=== PATIENT | female | born 2005 | race Caucasian/White ===

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

== ENCOUNTER 2023-07-15 22:31 | Emergency (ER) | payer OTHER, SELFPAY ==
[2023-07-15 22:41] VITALS: BP 136/85; PULSE 69; RESP 20; TEMP 37.2; O2SAT 99; BMI 21.1
[2023-07-15 22:58] LABS: Appearance Urine Clear (Clear); Bilirubin Urine Negative (Negative); Blood Urine Negative (Negative); Color Urine Yellow (Yellow); Glucose Urine Negative (Negative); Ketones Urine Negative (Negative); Leukocyte Esterase Urine Negative (Negative); Nitrite Urine Negative (Negative); Protein Urine Negative (Negative); Urobilinogen Urine 0.2 (0.2-1.0); pH Urine 5.5 (5.0-8.5)
[2023-07-15 23:08] LABS: Amphetamine Screen Urine Negative (Negative); Barbiturate Screen Urine Negative (Negative); Benzodiazepines Screen Urine POSITIVE (Negative); Cannabinoid Screen Urine Negative (Negative); Cocaine Screen Urine Negative (Negative); Methadone Screen Urine Negative (Negative); Methamphetamines Screen Urine Negative (Negative); Opiate Screen Urine Negative (Negative); Oxycodone Screen Urine Negative (Negative); Phencyclidine Screen Urine Negative (Negative); Tricyclic Antidepressant Urine Negative (Negative)
[2023-07-15 23:13] LABS: Bacteria Urine Few; RBC Urine 0-2 (0-2); Squamous Epithelial Cell Urine Few (None-Few)
[2023-07-15 23:26] LABS: Basophils Absolute Auto 0.03 K/uL (0.00-0.30); Basophils Percent Auto 0.3 % (0.0-3.0); Eosinophils Absolute Auto 0.14 K/uL (0.00-0.50); Eosinophils Percent Auto 1.4 % (0.0-7.0); Hemoglobin* 13.5 gm/dL (12.0-16.0); Immature Granulocytes Abs Auto 0.11 K/uL (0.00-0.30); Immature Granulocytes Pct Auto 1.1 %; Lymphocytes Absolute Auto 2.71 K/uL (0.90-2.90); Mean Corpuscular HGB Conc 34 gm/dL (32-36); Mean Corpuscular Hemoglobin 29 pg (26-34); Mean Corpuscular Volume 85 fL (80-100); Monocytes Percent Auto 11.6 % (0.0-11.0); Neutrophils Absolute Auto 5.89 K/uL (1.7-7.0); Neutrophils Percent Auto 58.6 % (42.0-72.0); Platelet Count* 412 K/uL (140-440); Red Blood Count 4.72 m/uL (4.00-5.20); White Blood Count* 10.04 K/uL (4.50-11.00)
[2023-07-15 23:31] LABS: SARS Antigen* Negative (Negative)
[2023-07-15 23:42] LABS: Chloride* 108 mmol/L (96-114); Potassium* 3.8 mmol/L (3.6-5.1); Sodium* 140 mmol/L (135-149)
[2023-07-15 23:45] LABS: Anion Gap 9 mEq/L (7-15); Blood Urea Nitrogen* 12 mg/dL (5-24); Carbon Dioxide* 23 mmol/L (20-32); Creatinine* 0.8 mg/dL (0.6-1.2); Est. Creatinine Clearance* 109.34; Estimated Glomerular Filt Rate 109 ml/min
[2023-07-15 23:46] LABS: Calcium* 9.8 mg/dL (8.7-10.8); Glucose* 88 mg/dL (60-115)
[2023-07-15 23:53] LABS: Acetaminophen* < 10.0 ug/mL (10.0-30.0); Salicylate* < 1.0 mg/dL (1.0-10)
[2023-07-15 23:56] LABS: Slide Review Reflex No
--- NOTE | 2023-07-16 00:40 | ED_ITS ---
HPI - Psych General Date Seen: 07/16/23 <Gary Glo Abraham - Last Filed: 07/16/23 02:08> Chief Complaint: Psychiatric Problem/Disorder <Gary Rosario - Last Filed: 07/16/23 02:08> Stated Complaint: mental health <Gary Rosario - Last Filed: 07/16/23 02:08> Time Seen by Provider: 07/15/23 22:38 <Gary Glo Abraham - Last Filed: 07/16/23 02:08> Source: patient <Gary Rosario - Last Filed: 07/16/23 02:08> Mode of arrival: ambulatory <Gary Rosario - Last Filed: 07/16/23 02:08> Limitations: no limitations <Gary Rosario - Last Filed: 07/16/23 02:08> History of Present Illness HPI Narrative: Patient is an 16-year-old female with a history of depression, PTSD presenting to the emergency department for suicidal ideation. Patient states she has not been doing well over the past few weeks. Her mom is not involved in her life at all and her father is an alcoholic who recently got a DUI. 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 She also states they recently decreased her ADHD medication and she thinks that has made it worse. She has not believe her medication is helping at all right now. She has had thoughts of suicide and while does not have an exact plan how she would commit suicide she does not feel safe being alone. She does think she would be safe son she is staying with her boyfriend or friends. Has had suicidal thoughts like this before. Has never required inpatient treatment. Has tried outpatient with little success. Currently her therapist is online and she states she prefer somewhat is in person. She does have a doctor that is prescribing her medications. Denies any homicidal thoughts. Denies auditory or visual hallucinations. No other concerns noted at this time. <Gary Rosario - Last Filed: 07/16/23 02:08> Related Data Home Medications: Home Medications Medication Instructions Recorded Confirmed trazodone 50 mg tablet 75 mg PO QHS 03/14/22 07/15/23 levothyroxine 88 mcg tablet 88 mcg PO DAILY 07/15/23 07/15/23 linaclotide 145 mcg capsule 290 mcg PO QAM 07/15/23 07/15/23 (Linzess) lorazepam 1 mg tablet 1 mg PO DAILY PRN panic attack 07/15/23 07/15/23 methylphenidate HCl 36 mg 36 mg PO QAM 07/15/23 07/15/23 tablet,extended release 24 hr (Concerta) mirtazapine 7.5 mg tablet 7.5 mg PO QPM 07/15/23 07/15/23 norgestrel 0.3 mg-ethinyl 1 tab PO DAILY 07/15/23 07/15/23 estradiol 30 mcg tablet (Low-Ogestrel (28)) venlafaxine 37.5 mg 37.5 mg PO DAILY 07/15/23 07/15/23 capsule,extended release 24 hr (Effexor XR) <Gary Rosario DO - Last Filed: 07/16/23 02:08> Allergies/Adverse Reactions: Allergies Allergy/AdvReac Type Severity Reaction Status Date / Time No Known Drug Allergies Allergy Verified 07/15/23 23:29 <Gary Rosario DO - Last Filed: 07/16/23 02:08> Review of Systems Status of ROS: Reports: 10 or more systems reviewed and unremarkable except as noted in History and below <Gary Rosario DO - Last Filed: 07/16/23 02:08> [facility] Medical History: Medical History Obsessive compulsive disorder ?F42.9 - Obsessive-compulsive disorder, unspecified (ICD-10) PTSD (post-traumatic stress disorder) ?F43.10 - Post-traumatic stress disorder, unspecified (ICD-10) Fatigue ?R53.83 - Other fatigue (ICD-10) Vitamin D deficiency ?E55.9 - Vitamin D deficiency, unspecified (ICD-10) 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 - Eating disorder, unspecified (ICD-10) Amenorrhea ?N91.2 - Amenorrhea, unspecified (ICD-10) Anxiety and depression ?F41.9 - Anxiety disorder, unspecified (ICD-10) ?F32.A - Depression, unspecified (ICD-10) ROMI (generalized anxiety disorder) ?F41.1 - Generalized anxiety disorder (ICD-10) <Gary Rosario DO - Last Filed: 07/16/23 02:08> Surgical History: Surgical History No significant past surgical history <Gary Rosario DO - Last Filed: 07/16/23 02:08> Social History: Social History Smoking Status: Never smoker Do you use any of these nicotine containing products: E-Cigarettes Second hand tobacco smoke exposure: No How often do you have a drink containing alcohol: never How often do you have six or more drinks on one occasion: Never AUDIT-C Alcohol total score: 0 Non-prescribed substance use: denies use <Gary Rosario DO - Last Filed: 07/16/23 02:08> Exam Narrative: Exam Narrative: Const: Well-nourished, Well-developed, in mild distress Eyes: PERRL, no conjunctival injection, and symmetrical lids HENT: Atraumatic external nose and ears. Moist mucous membranes. Neck: Symmetric, trachea midline, No thyromegaly. CVS: RRR, No murmurs or gallops. Peripheral pulses 2+ and equal in all extremities RESP: Unlabored respiratory effort. Clear to auscultation bilaterally. GI: Nontender/Nondistended, No rebound or guarding. MSK:Extremities w/o deformity, Normal Active ROM Skin: Warm, Dry. No rashes or lesions. Neuro: Normal Muscle tone, No focal neurological deficits. Psych: Awake, Alert, & Oriented x3. Appears very anxious. <Gary Rosario DO - Last Filed: 07/16/23 02:08> Const: Vital Signs, click to edit/add: Vital Signs - 24 hr 07/15/23 22:41 07/16/23 01:26 07/16/23 04:26 Temperature 99.0 F 98.5 F 98.5 F Pulse Rate [Right Pulse Oximeter] 69 71 79 Respiratory Rate 20 20 20 Blood Pressure [Ri ght Upper Arm] 136/85 125/78 117/68 Pulse Oximetry 99 99 99 Oxygen Delivery Me thod Room Air Room Air Room Air <Gary Rosario DO - Last Filed: 07/16/23 02:08> Vital Signs, click to edit/add: Vital Signs - 24 hr 07/15/23 22:41 07/16/23 01:26 07/16/23 04:26 Temperature 99.0 F 98.5 F 98.5 F Pulse Rate [Right Pulse Oximeter] 69 71 79 Respiratory Rate 20 20 20 Blood Pressure [Ri ght Upper Arm] 136/85 125/78 117/68 Pulse Oximetry 99 99 99 Oxygen Delivery Me thod Room Air Room Air Room Air <Lo Lloyd MD - Last Filed: 07/16/23 07:50> Course Vital Signs Vital signs: Initial Vital Signs Temperature 99.0 F 07/15/23 22:41 Temperature Source Temporal Artery Scan 07/15/23 22:41 Pulse Rate 69 07/15/23 22:41 Respiratory Rate 20 07/15/23 22:41 Blood Pressure 136/85 07/15/23 22:41 Blood Pressure Mean 102 07/15/23 22:41 Blood Pressure Position Sitting 07/15/23 22:41 Pulse Oximetry 99 07/15/23 22:41 Oxygen Delivery Method Room Air 07/15/23 22:41 Vital Signs Temperature 99.0 F 07/15/23 22:41 Pulse Rate 69 07/15/23 22:41 Respiratory Rate 20 07/15/23 22:41 Blood Pressure 136/85 07/15/23 22:41 Pulse Oximetry 99 07/15/23 22:41 Oxygen Delivery Method Room Air 07/15/23 22:41 Temperature 98.5 F 07/16/23 04:26 Pulse Rate 79 07/16/23 04:26 Respiratory Rate 20 07/16/23 04:26 Blood Pressure 117/68 07/16/23 04:26 Pulse Oximetry 99 07/16/23 04:26 Oxygen Delivery Method Room Air 07/16/23 04:26 <Gary Rosario DO - Last Filed: 07/16/23 02:08> Initial Vital Signs Temperature 99.0 F 07/15/23 22:41 Temperature Source Temporal Artery Scan 07/15/23 22:41 Pulse Rate 69 07/15/23 22:41 Respiratory Rate 20 07/15/23 22:41 Blood Pressure 136/85 07/15/23 22:41 Blood Pressure Mean 102 03/21/24 22:41 Blood Pressure Position Sitting 07/15/23 22:41 Pulse Oximetry 99 07/15/23 22:41 Oxygen Delivery Method Room Air 07/15/23 22:41 Vital Signs Temperature 99.0 F 07/15/23 22:41 Pulse Rate 69 07/15/23 22:41 Respiratory Rate 20 07/15/23 22:41 Blood Pressure 136/85 07/15/23 22:41 Pulse Oximetry 99 07/15/23 22:41 Oxygen Delivery Method Room Air 07/15/23 22:41 Temperature 98.5 F 07/16/23 04:26 Pulse Rate 79 07/16/23 04:26 Respiratory Rate 20 07/16/23 04:26 Blood Pressure 117/68 07/16/23 04:26 Pulse Oximetry 99 07/16/23 04:26 Oxygen Delivery Method Room Air 07/16/23 04:26 <Lo Lloyd MD - Last Filed: 07/16/23 07:50> Medications Administered Medications: Generic Name Dose Route Start Last Admin Trade Name Freq PRN Reason Stop Dose Admin Mirtazapine 7.5 mg 07/16/23 21:00 07/16/23 00:58 Mirtazapine 15 Mg Tablet PO 7.5 mg HS MIKO Administration Trazodone HCl 100 mg 07/16/23 00:41 07/16/23 00:58 Trazodone Hcl 50 Mg Tablet PO 100 mg HS PRN Administration Discontinued Medications Generic Name Dose Route Start Last Admin Trade Name Freq PRN Reason Stop Dose Admin Lorazepam 1 mg 07/16/23 00:41 07/16/23 00:57 Lorazepam 1 Mg Tablet PO 07/16/23 00:42 1 mg ONCE ONE Administration <Gary Rosario DO - Last Filed: 07/16/23 02:08> Generic Name Dose Route Start Last Admin Trade Name Freq PRN Reason Stop Dose Admin Mirtazapine 7.5 mg 07/16/23 21:00 07/16/23 00:58 Mirtazapine 15 Mg Tablet PO 7.5 mg HS MIKO Administration Trazodone HCl 100 mg 07/16/23 00:41 07/16/23 00:58 Trazodone Hcl 50 Mg Tablet PO 100 mg HS PRN Administration Discontinued Medications Generic Name Dose Route Start Last Admin Trade Name Freq PRN Reason Stop Dose Admin Lorazepam 1 mg 07/16/23 00:41 07/16/23 00:57 Lorazepam 1 Mg Tablet PO 07/16/23 00:42 1 mg ONCE ONE Administration <Lo Lloyd MD - Last Filed: 07/16/23 07:50> MDM - Psych MDM Narrative Medical decision making narrative: Patient is a 17-year-old female presenting for psychiatric evaluation. Will order urinalysis, COVID, drug screen, BMP, CBC, salicylate level, TSH, acetaminophen levels. Will call DEC for evaluation. This time she is not sure if she wants to stay inpatient versus getting restart his for outpatient. She can stay with her friends at this time. Lab work all returned showing no concerning abnormalities. Drug screen just shows benzodiazepines which she is prescribed. Patient signed out to my colleague Dr. Lloyd. <Gary Rosario DO - Last Filed: 07/16/23 02:08> Patient is a 17-year-old female presenting for psychiatric evaluation. Will order urinalysis, COVID, drug screen, BMP, CBC, salicylate level, TSH, acetaminophen levels. Will call DEC for evaluation. This time she is not sure if she wants to stay inpatient versus getting restart his for outpatient. She can stay with her friends at this time. Lab work all returned showing no concerning abnormalities. Drug screen just shows benzodiazepines which she is prescribed. Patient signed out to my colleague Dr. Lloyd. Amber remained stable overnight. Her significant other state with her in the room is been very loving and supportive. This morning she underwent DEC assessment. At this morning she is no longer suicidal. Given the option of inpatient treatment versus outpatient she has elected to follow outpatient treatment and a safety plan from her mental health paper goods machine set up operator will be faxed to us. 1. Suicidal ideation-this is now resolved. Amber has a very supportive significant other. She will stay with him as she navigates her anxiety and depression. Amber contracts for safety this morning with myself. Her safety plan has arrived in includes phone numbers for mental health professionals. I did remind her that if she has any worsening symptoms to return to the emergency room. She does agree that she feels safe going home. Her significant other seems to be a great source of support. 2. Anxiety and depression 3. Disposition-home at this time. Return to the emergency room for worsening symptoms and as needed. <Lo Lloyd MD - Last Filed: 07/16/23 07:50> Medical Records Attestation: I reviewed the patient's medical records. <Lo Lloyd MD - Last Filed: 07/16/23 07:50> Medical records narrative: Dr. Rosario record reviewed <Lo Lloyd MD - Last Filed: 07/16/23 07:50> Lab Data Attestation: I reviewed the patient's lab results. <Lo Lloyd MD - Last Filed: 07/16/23 07:50> Labs: Lab Results 07/15/23 07/15/23 Range/Units 22:43 23:20 WBC 10.04 (4.50-11.00) K/uL RBC 4.72 (4.00-5.20) m/uL Hgb 13.5 (12.0-16.0) gm/dL Hct 40.0 (33.0-51.0) % MCV 85 (80-100) fL MCH 29 (26-34) pg MCHC 34 (32-36) gm/dL RDW Coeff of Ibis 13.0 (11.5-15.5) % Plt Count 412 (140-440) K/uL Neut % (Auto) 58.6 (42.0-72.0) % Lymph % (Auto) 27.0 (20-44) % [place] % (Auto) 11.6 H (0.0-11.0) % Eos % (Auto) 1.4 (0.0-7.0) % Baso % (Auto) 0.3 (0.0-3.0) % Neut # (Auto) 5.89 (1.7-7.0) K/uL Lymph # (Auto) 2.71 (0.90-2.90) K/uL [place] # (Auto) 1.20 H (0.00-0.90) K/UL Eos # (Auto) 0.14 (0.00-0.50) K/uL Baso # (Auto) 0.03 (0.00-0.30) K/uL Abs Immat Gran (auto) 0.11 (0.00-0.30) K/uL Imm/Tot Granulo (auto) 1.1 % Sodium 140 (135-149) mmol/L Potassium 3.8 (3.6-5.1) mmol/L Chloride 108 (96-114) mmol/L Carbon Dioxide 23 (20-32) mmol/L Anion Gap 9 (7-15) mEq/L BUN 12 (5-24) mg/dL Creatinine 0.8 (0.6-1.2) mg/dL Estimated Creat Clear 109.34 Estimated GFR 109 ml/min Glucose 88 (60-115) mg/dL Calcium 9.8 (8.7-10.8) mg/dL TSH 3.290 (0.270-4.20) uIU/mL Urine Color Yellow (Yellow) Urine Appearance Clear (Clear) Urine pH 5.5 (5.0-8.5) Ur Specific [place] 1.010 (1.000-1.030) Urine Protein Negative (Negative) Urine Glucose (UA) Negative (Negative) Urine Ketones Negative (Negative) Urine Blood Negative (Negative) Urine Nitrite Negative (Negative) Urine Bilirubin Negative (Negative) Urine Urobilinogen 0.2 (0.2-1.0) Ur Leukocyte Esterase Negative (Negative) Urine RBC 0-2 (0-2) Urine WBC 2-5 (0-5) Ur Squamous Epith Cells Few (None-Few) Urine Bacteria Few A (None) Salicylates < 1.0 L (1.0-10) mg/dL Urine Opiates Screen Negative (Negative) Ur Oxycodone Screen Negative (Negative) Urine Methadone Screen Negative (Negative) Acetaminophen < 10.0 L (10.0-30.0) ug/mL Ur Barbiturates Screen Negative (Negative) U Tricyclic Antidepress Negative (Negative) Ur Phencyclidine Scrn Negative (Negative) Ur Amphetamines Screen Negative (Negative) U Methamphetamines Scrn Negative (Negative) U Benzodiazepines Scrn POSITIVE A (Negative) Urine Cocaine Screen Negative (Negative) U Marijuana (THC) Screen Negative (Negative) Ur Drug Screen Comment See Note SARS-CoV-2 Ag (Rapid) Negative (Negative) <Gary Rosario, DO - Last Filed: 07/16/23 02:08> Lab Results 07/15/23 07/15/23 Range/Units 22:43 23:20 WBC 10.04 (4.50-11.00) K/uL RBC 4.72 (4.00-5.20) m/uL Hgb 13.5 (12.0-16.0) gm/dL Hct 40.0 (33.0-51.0) % MCV 85 (80-100) fL MCH 29 (26-34) pg MCHC 34 (32-36) gm/dL RDW Coeff of Ibis 13.0 (11.5-15.5) % Plt Count 412 (140-440) K/uL Neut % (Auto) 58.6 (42.0-72.0) % Lymph % (Auto) 27.0 (20-44) % [place] % (Auto) 11.6 H (0.0-11.0) % Eos % (Auto) 1.4 (0.0-7.0) % Baso % (Auto) 0.3 (0.0-3.0) % Neut # (Auto) 5.89 (1.7-7.0) K/uL Lymph # (Auto) 2.71 (0.90-2.90) K/uL [place] # (Auto) 1.20 H (0.00-0.90) K/UL Eos # (Auto) 0.14 (0.00-0.50) K/uL Baso # (Auto) 0.03 (0.00-0.30) K/uL Abs Immat Gran (auto) 0.11 (0.00-0.30) K/uL Imm/Tot Granulo (auto) 1.1 % Sodium 140 (135-149) mmol/L Potassium 3.8 (3.6-5.1) mmol/L Chloride 108 (96-114) mmol/L Carbon Dioxide 23 (20-32) mmol/L Anion Gap 9 (7-15) mEq/L BUN 12 (5-24) mg/dL Creatinine 0.8 (0.6-1.2) mg/dL Estimated Creat Clear 109.34 Estimated GFR 109 ml/min Glucose 88 (60-115) mg/dL Calcium 9.8 (8.7-10.8) mg/dL TSH 3.290 (0.270-4.20) uIU/mL Urine Color Yellow (Yellow) Urine Appearance Clear (Clear) Urine pH 5.5 (5.0-8.5) Ur Specific [place] 1.010 (1.000-1.030) Urine Protein Negative (Negative) Urine Glucose (UA) Negative (Negative) Urine Ketones Negative (Negative) Urine Blood Negative (Negative) Urine Nitrite Negative (Negative) Urine Bilirubin Negative (Negative) Urine Urobilinogen 0.2 (0.2-1.0) Ur Leukocyte Esterase Negative (Negative) Urine RBC 0-2 (0-2) Urine WBC 2-5 (0-5) Ur Squamous Epith Cells Few (None-Few) Urine Bacteria Few A (None) Salicylates < 1.0 L (1.0-10) mg/dL Urine Opiates Screen Negative (Negative) Ur Oxycodone Screen Negative (Negative) Urine Methadone Screen Negative (Negative) Acetaminophen < 10.0 L (10.0-30.0) ug/mL Ur Barbiturates Screen Negative (Negative) U Tricyclic Antidepress Negative (Negative) Ur Phencyclidine Scrn Negative (Negative) Ur Amphetamines Screen Negative (Negative) U Methamphetamines Scrn Negative (Negative) U Benzodiazepines Scrn POSITIVE A (Negative) Urine Cocaine Screen Negative (Negative) U Marijuana (THC) Screen Negative (Negative) Ur Drug Screen Comment See Note SARS-CoV-2 Ag (Rapid) Negative (Negative) <Lo Lloyd MD - Last Filed: 07/16/23 07:50> Discharge Plan Discharge Clinical Impression: Suicidal ideation, Anxiety and depression <Gary Rosario DO - Last Filed: 07/16/23 02:08> Patient Disposition: Home, Self-Care <Gary Rosario DO - Last Filed: 07/16/23 02:08> Condition: Improved <Gary Rosario DO - Last Filed: 07/16/23 02:08> Additional Instructions: Please follow safety plan. Phone numbers are provided for mental health professionals if needed. Please surround herself with people that are loving and supportive. Return to the emergency room for worsening symptoms. If you start feeling that you are a danger to yourself please return immediately. <Gary Rosario DO - Last Filed: 07/16/23 02:08> Prescriptions: No Action trazodone 50 mg tablet 75 mg PO QHS Low-Ogestrel (28) 0.3-30 mg-mcg tablet 1 tab PO DAILY levothyroxine 88 mcg tablet 88 mcg PO DAILY lorazepam 1 mg tablet 1 mg PO DAILY PRN (Reason: panic attack) methylphenidate HCl [Concerta] 36 mg tablet extended release 24hr 36 mg PO QAM mirtazapine 7.5 mg tablet 7.5 mg PO QPM Linzess 145 mcg capsule 290 mcg PO QAM venlafaxine [Effexor XR] 37.5 mg capsule,extended release 24hr 37.5 mg PO DAILY <Gary Rosario DO - Last Filed: 07/16/23 02:08> Follow Up/Referrals: Provider,Not a Local [Primary Care Provider] - <Gary Rosario DO - Last Filed: 07/16/23 02:08> Stand Alone Forms: [employer] Info Instructions <Gary Rosario DO - Last Filed: 07/16/23 02:08>
[2023-07-16] MEDS: LORazepam 1 MG TABLET PO (00:57)
[2023-07-16] MEDS: TRAZODONE HCL 50 MG TABLET 100 MG PO (00:58)
[2023-07-16] MEDS: MIRTAZAPINE 15 MG TABLET 7.5 MG PO (00:58)
[2023-07-16 01:26] VITALS: BP 125/78; PULSE 71; RESP 20; TEMP 36.9; O2SAT 99
[2023-07-16 04:26] VITALS: BP 117/68; PULSE 79; RESP 20; TEMP 36.9; O2SAT 99
== END 2023-07-16 08:00 | disposition home or self-care (01) ==
PROVIDERS: Student in an Organized Health Care Education/Training Program; Emergency Provider Family Medicine
DX: R45.851 Suicidal ideations (principal); F32.A Depression, unspecified; F41.8 Other specified anxiety disorders
CPT/HCPCS: 36415; 80048; 80143; 80179; 80306; 81001; 84443; 85025; 87086; 87426; 87635; 99283; 99284; A9270

== ENCOUNTER 2025-01-04 17:16 | Emergency (ER) | payer BC, SELFPAY ==
--- OUTSIDE RECORDS SUMMARY | 2024-11-27 09:10 | XMS_ITS | Encounter Summary ---
Author Organization [facility]ly [facility] Address [address], [place] [address] Care Team Providers Care Mushroom Growing Supervisor Name Role Phone No Primary/Referring, Phy Primary Care Provider Unavailable Reason for Visit * Reason Comments Post-Op Check Encounter Details Date Type Department Care Team (Late st Contact Info) Description 11/27/2024 9:10 AM CDT Office Visit [address] [address] Nii Love MD [address] [place] [address] [place] [address] S/P shoulder surgery (Primary Dx) Social History Tobacco Use Types Packs/Day Years Used Date Smoking Tobacco: Never Smokeless Tobacco: Never Alcohol Use Standard Drinks/Week Comments Not Currently 0 (1 standard drink = 0.6 oz pur e alcohol) AUDIT-C Answer Date Recorded Q1: How often do you have a drink containing alc ohol? Never 06/22/2020 Average Number of Drinks Not on file 021 Frequency of Binge Drinking Not on file 05/28 Comments No Sex and Gender Information Value Date Recorded Sex Assigned at Not on file Legal Sex Female 6:54 PM CDT Gender Identity Not on file Sexual Orientation Not on file documented as of this encounter Patient Instructions * Patient Instructions* Leslie Mar ATC - 11/27/2024 9:10 AM CDT Thank you for Choosing [facility] for your health care visit today. Dr. Nii Love MD Orthopaedic Surgeon Pump And Still Operator, [facility] Medication Requests: Prescriptions are not filled on weekends or on weekdays after 3:00 PM. For all medication refills: Request a refill using MyChart or contact your pharmacy. What is Know Your Cost? Know Your Cost is a service for patients and patient/members to call and receive personalized cost information and estimates across our care group. The phone number is (COST) Wednesday - Wednesday 8 AM to 5 PM Advanced Imaging Scheduling: To schedule an MRI, Ultrasound, or Image guided injection at [facility] please call [phone]. To schedule an MRI or CT at a [facility] please call [phone]. [facility] Workers' Compensation [address] [place] [address] (Phone) Email: [email or web address] Release of Information: Radiology/Imaging [address] [place] [address] (Phone) Health Information Management [address] [place] [address] (Phone) Guanri documented in this encounter Progress Notes * Nii Love MD - 11/27/2024 9:10 AM CDT Amber Nam [id number] [facility] Orthopaedic Surgery Follow-Up 11/27/2024 Chief Complaint: Surgical Procedure: Left shoulder arthroscopic Bankart repair Date of Surgery: 06/27/2024 History of Present Illness: Amber Nam is a 18 y.o. female 5 months status-post the above procedure who presents for postoperative follow-up. Last seen on 10/02/24. At that time, she was doing well and making good progress. Today, she reports SANE score of 80/100. The shoulder is stable. She is now back to some skating and stick handling. Physical Exam: General: Alert, oriented, no distress. Skin: Well healed surgical incisions without erythema, induration, or drainage. Neuro: Neurovascularly intact distally. Sensation intact to light touch. Cardiovascular: Capillary refill brisk. Left Shoulder: Full and symmetrical range of motion. 5/5 supraspinatus, external rotator, and subscapularis strength. Negative apprehension. Negative load and shift. Imaging: No imaging obtained today. Assessment: Diagnosis and Associated Orders ICD-10-CM 1. 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 Doing very well. Ranks her shoulder as an 80/100. Her exam is quite encouraging with full motion and strength. Her shoulder is stable on exam. We had a long conversation today about [facility]. She is skating and stick handling. I think at this point we can start to go full speed drills without contact until December 25. On December 25, I am fine with her starting full contact hockey. We also discussed using her [place] brace. We decided that she will use it initially to start and then wean out of it. She understands that returning to high level sports does carry a degree of risk of re-injury. Plan: 1. She will continue an ongoing rotator cuff and periscapular strengthening program. 2. She is now cleared to skate full speed and do full speed non contact drills. She is cleared to participate in full hockey without restrictions on December 25. 3. Follow-up in June at the end of the season for routine recheck. Scribe Disclosure: I, Edna Munoz, am serving as a scribe to document services personally performed by Nii Love MD at this visit, based upon the provider's statements to me. All documentation has been reviewed by the aforementioned provider prior to being entered into the official medical record. Portions of this medical record were completed by a scribe. UPON MY REVIEW AND AUTHENTICATION BY ELECTRONIC SIGNATURE, this confirms (a) I performed the applicable clinical services, and (b) the record is accurate. Nii Love MD documented in this encounter Plan of Treatment Upcoming Encounters Date Type Department Care Team (Late st Contact Info) Description 01/18/2025 9:00 AM CDT Appointment [facility] [address] [place] [phone] Marcello Leyva, PT [address] [id number] 02/08/2025 9:45 AM CDT Appointment [facility] [address] [place] [phone] Marcello Leyva, PT [address] [id number] 03/01/2025 9:00 AM BEAM SEALER Appointment [facility] [address] [place] [phone] Marcello Leyva, PT [address] [id number] 06/28/2025 8:00 AM BEAM SEALER Appointment [facility] [address] [place] [address] Nii Love MD [address] [place] [address] documented as of this encounter Visit Diagnoses Diagnosis S/P shoulder surgery- Primary Other postprocedural status documented in this encounter Care Teams Mushroom Growing Supervisor Relationship Specialty Start Date End Date No Primary/Referring, Phy PCP - General 01/12/21 documented as of this encounter
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
--- OUTSIDE RECORDS SUMMARY | 2024-12-21 09:00 | XMS_ITS | Encounter Summary ---
[facility] Organization [facility] Address [address] [place] [address] Care Team Providers Care Data Acquisition Technician Name Role Phone No Primary/Referring, Phy Primary Care Provider Unavailable Reason for Visit * Reason Comments Shoulder Problem Encounter Details Date Type Department Care Team (Late st Contact Info) Description 12/21/2024 9:00 AM CDT Therapy [facility] [address] [place] [phone] Marcello Leyva, PT [address] [place] [address] Left shoulder pain, unspecified chronicity (Primary [...] Progress Notes * Marcello Leyva, PT - 12/21/2024 9:00 AM CDT Physical Therapy Sports Medicine [...] Laterality Date ADENOIDECTOMY LHD Progress report interval: 12/07/24 to 12/21/2024 Visit #17 DOS: 06/27/24 (23 weeks) SUBJECTIVE: Amber Nam reports her shoulder is feeling better. Shooting is still fatiguing but less so (20 shots and needs a rest)--shot 100 pucks yesterday Current pain is 4/10 24 hours after [...] % bodyweight 0?? isometrically 31 29 94 / 20 30??/sec 33 26 121 JOHN (T-position Y-position 130 deg) L: 77 N (17.5#) 87 N (19.7#) R: 69 N (15.7#) 101 N (22.9#) TODAY'S INTERVENTION(s) // OUTCOME(s): Therapeutic exercise- Block week: 1 Exercise Resistance Sets x reps Tempo Effort Notes Bike 11 6 min Measurements (see above) 1/2 kneeling T cable catch 7# 4 x 6 Drop catch push up 6 BW 3 x 5 Circuit below Circuit, no rest between exercises until full set is completed then 45 between sets Exercise Resistance Sets x reps Tempo Effort Notes [place] ball slams 6# 5 x 10 5 each direction Burpees BW 5 x 10 Wall chest pass 6# 5 x 10 Cable punch 13# 5 x 6 Medbridge: [id number] Home Exercise Program/Education*: 1. Pathophysiology of physical [...] Nam presents with good shoulder range of motion, and higher JOHN test force output at both Tand Y-positions. Tolerated all rate of force development training today in session. Plan Frequency: 1-2 Time(s) per week(s) Duration: [...] the treatment plan. Billing: Total treatment time: 40 minutes. Total minutes spent in timed codes: 40 minutes. Therapeutic exercise 09233 - 40 minute(s), 3 unit(s) Marcello Leyva PT, DPT, SCS 12/21/2024 9:49 AM documented in this encounter Plan of Treatment Upcoming Encounters Date Type Department Care Team (Late st Contact Info) Description 01/18/2025 9:00 AM CDT Appointment [facility] [address] [place] [phone] Marcello Leyva, PT [address] [place] [address] 02/08/2025 9:45 AM CDT Appointment [facility] [address] [place] [phone] Marcello Leyva, PT [address] [place] [address] 03/01/2025 9:00 AM HOUSECALLS NURSE Appointment [facility] [address] [place] [phone] Marcello Levya, PT [address] [place] [address] 06/28/2025 8:00 AM HOUSECALLS NURSE Appointment [facility] [place] [address] [place] [address] [place] [address] Nii Love MD [address] [facility] [place] [address] documented as of this encounter Visit Diagnoses Diagnosis Left shoulder pain, unspecified chronicity- Primary documented in this encounter Care Teams Data Acquisition Technician Relationship Specialty Start Date End Date No Primary/Referring, Kaileyy PCP - General 01/12/21 documented as of this encounter
--- OUTSIDE RECORDS SUMMARY | 2025-01-04 09:00 | XMS_ITS | Encounter Summary ---
Author Organization [facility] Address [address] [place] [address] Care Team Providers Care Blasting Worker Name Role Phone No Primary/Referring, Phy Primary Care Provider Unavailable Reason for Visit * Reason Comments Shoulder Problem Encounter Details Date Type Department Care Team (Late st Contact Info) Description 01/04/2025 9:00 AM CDT Telemedicine [facility] [address] [place] [address] Marcello Leyva, PT [address] [place] [id number] Left shoulder pain, unspecified chronicity (Primary Dx) [...] Progress Notes * Marcello Leyva, PT - 01/04/2025 9:00 AM CDT Physical Therapy Sports Medicine Outpatient Progress Note Patient's full name and date of were confirmed. This video encounter was completed per patient request. The patient has been notified that this visit will be conducted via video with their physical therapist, as certain health care needs can be provided without an in-person physical exam. Their physical therapist will provide further instructions and programming notes via Case Rover, an online education and home exercise program platform. Mode of transmission: Amwell Time service began: 9:00 am Time service ended: 9:40 am Patient location: Residence Provider location: [facility] Patient's Name: Amber Nam Referring Provider: Nii [...] Laterality Date ADENOIDECTOMY LHD Progress report interval: 12/21/24 to 01/04/2025 Visit #18 DOS: 06/27/24 (6 months and 1 weeks) SUBJECTIVE: Amber Nam reports her shoulder endurance has felt taxed with captains practice and then lifting in the same day. She does get some soreness in her shoulder, notably with pumping her arms during sprinting. Did feel a little pop near her collarbone during banded lat pull downs. Current pain is 4/10 24 hours after [...] % bodyweight 0?? isometrically 16 12 75% 11 / 8 30??/sec 16 25 136 11 / 17 IR Peak Torque Uninvolved (ft/lbs) Involved (ft/lbs) Involved strength % % bodyweight 0?? isometrically 31 29 94 30??/sec 33 26 121 JOHN (T-position Y-position 130 deg) L: 77 N (17.5#) 87 N (19.7#) R: 69 N (15.7#) 101 N (22.9#) TODAY'S INTERVENTION(s) // OUTCOME(s): Therapeutic exercise- Block week: 1 Exercise Resistance Sets x reps Tempo Effort Notes - Discussed current programming - Talked through sprint test (track vs ice vs bike) - Gave progressive sprint program on track - Talked through weightroom lifts - Talked through fatigue vs pain (common joint referral places); preference for little to no pain Medbridge: [id number] Home Exercise Program/Education*: 1. Pathophysiology of physical [...] appropriate cueing for correct performance. Assessment Amber Nam's session was spent discussing programming, current training, and upcoming testing. Discussed balancing shoulder work vs irritating. Will reach out and connect with ATC to help facilitateprogressions. Plan Frequency: 1-2 Time(s) per week(s) Duration: [...] in timed codes: 40 minutes. Therapeutic exercise 03619 - 40 minute(s), 3 unit(s) Marcello Leyva PT, DPT, SCS 01/04/2025 9:44 AM documented in this encounter Plan of Treatment Upcoming Encounters Date Type Department Care Team (Late st Contact Info) Description 01/18/2025 9:00 AM CDT Appointment [facility] [address] [place] [phone] Marcello Leyva, PT [address] [place] [address] 02/08/2025 9:45 AM CDT Appointment [facility] [address] [place] [phone] Marcello Leyva PT [address] [place] [address] 03/01/2025 9:00 AM SHIPPING ROOM HELPER Appointment [facility] [address] [place] [phone] Marcello Leyva, PT [address] [place] [address] 06/28/2025 8:00 AM SHIPPING ROOM HELPER Appointment [facility] [place] [address] [place], [place] [address] Nii Love MD [address] [facility] [place] [id number] documented as of this encounter Visit Diagnoses Diagnosis Left shoulder pain, unspecified chronicity- Primary documented in this encounter Care Teams Blasting Worker Relationship Specialty Start Date End Date No Primary/Referring, Phy PCP - General 01/12/21 documented as of this encounter
--- OUTSIDE RECORDS SUMMARY | 2025-01-04 17:19 | XMS_ITS | Encounter Summary ---
Author Organization [facility] Address [address] [place] [address]. [place] [address] Care Team Providers Care Extension Forester Name Role Phone Higinio Vaughn MD Unavailable [phone] Rosalie Pendleton NP Primary Care Provider [phone] Rosalie Pendleton NP Unavailable [phone] Reason for Visit * Reason Comments Medication Refill Encounter Details Date Type Department Care Team (Late st Contact Info) Description 10/06/2024 Refill [facility] [address] [place] [address] Rosalie Pendleton NP [address] [place] [address] Medication Refill Social History Tobacco Use Types Packs/Day Years [...] in an abandoned building, in an overnight assisted, or couch-surfing.) Yes 03/17/2023 Are you worried [...] Sex Assigned at Female 04/19/2022 5:45 PM CATEGORY DEVELOPMENT ANALYST Legal Sex Female 4:50 AM CATEGORY DEVELOPMENT ANALYST Gender Identity Female 04/19/2022 5:45 PM CATEGORY DEVELOPMENT ANALYST Sexual Orientation Not on file documented as of this encounter Plan of Treatment Not on file documented as of this encounter Visit Diagnoses Diagnosis General counseling for prescription of oral contraceptives documented in this encounter Additional Health Concerns Assessment Noted Time PHQ-9 Depression Total Score: 9 03/17/20 23 4:13 PM CATEGORY DEVELOPMENT ANALYST documented as of this encounter Care Teams Extension Forester Relationship Specialty Start Date End Date Rosalie Pendleton NP [address] [place] [address] PCP - General Family Medicine 04/23/22 Higinio Vaughn MD [address] [address] Resident Student in organized health care education/training program 06/08/19 Rosalie Pendleton NP [address] [place] [address] Assigned PCP 09/15/24 documented as of this encounter
--- OUTSIDE RECORDS SUMMARY | 2025-01-04 17:19 | XMS_ITS | Encounter Summary ---
Author Organization [facility] Address [address] [place] [address] Care Team Providers Care Diesel Bus Mechanic Name Role Phone Ana Lilia Varner MD Primary Care Provide r Higinio Vaughn MD Unavailable [phone] Ana Lilia Varner MD Primary Care Provide r Fabián Starks MD Unavailable [phone] Ana Lilia Varner MD Unavailable System, Provider Not In Primary Care Provider Un available Fabián Starks MD Unavailable Rosalie Pendleton NP Unavailable [phone] Rosalie Pendleton NP Primary Care Provider [phone] Mitzi Mendez DO Unavailable [phone] Denny Dixon MD Unavailable [phone] Rosalie Pendleton NP Unavailable [phone] Encounter Details Date Type Department Care Team (Late st Contact Info) Description 12/06/2014 Records - [facility] CONVERSION Scan, Non-Provider Social History Tobacco Use Types Packs/Day Years Used Date Smoking Tobacco: Never Assessed Comments Unknown Sex and Gender Information Value Date Recorded Sex Assigned at Female 04/19/2022 5:45 PM COLD WORKING SUPERVISOR Legal Sex Female 4:50 AM COLD WORKING SUPERVISOR Gender Identity Female 04/19/2022 5:45 PM COLD WORKING SUPERVISOR Sexual Orientation Not on file documented as of this encounter Plan of Treatment Not on file documented as of this encounter Visit Diagnoses Not on filedocumented in this encounter Care Teams Diesel Bus Mechanic Relationship Specialty Start Date End Date Ana Lilia Varner MD PCP - General Pediatrics 05/09/19 07/23/21 Ana Lilia Varner MD PCP - General 07/04/14 05/08/19 System, Provider Not In PCP - General Clinic 07/24/21 04/22/22 Rosalie Pendleton NP [address] [place] [address] PCP - General Family Medicine 04/23/22 Higinio Vaughn MD [address] [address] Resident Student in organized health care education/training program 06/08/19 Fabián Starks MD [address] [address]36[address] Assigned PCP 07/04/20 11/07/20 Ana Lilia Varner MD [facility] [address] [place], [place] 988129 Assigned PCP 11/08/20 07/26/21 Fabián Starks MD [address] [address] Assigned PCP 07/27/21 12/19/21 Rosalie Pendleton NP [address] [place] [address] Assigned PCP 12/20/21 06/17/24 [place] [address] [place] [address] Assigned OBGYN Provider 04/25/22 Denny Dixon MD [address] [place] [address] Assigned PCP 06/18/24 09/14/24 Rosalie Pendleton NP [address] [facility] [place] [address] Assigned PCP 09/15/24 documented as of this encounter
--- OUTSIDE RECORDS SUMMARY | 2025-01-04 17:19 | XMS_ITS | Encounter Summary ---
Author Organization [facility] Address [address] [place] [address] Care Team Providers Care Ceo & Founder Name Role Phone Ana Lilia Varner MD Primary Care Provide r Higinio Vaughn MD Unavailable [phone] Ana Lilia Varner MD Primary Care Provide r Fabián Starks MD Unavailable [phone] Ana Lilia Varner MD Unavailable System, Provider Not In Primary Care Provider Un available Fabián Starks MD Unavailable [phone] Rosalie Pendleton NP Unavailable [phone] Rosalie Pendleton NP Primary Care Provider [phone] Mitzi Mendez DO Unavailable [phone] Denny Dixon MD Unavailable [phone] Rosalie Pendleton NP Unavailable [phone] Encounter Details Date Type Department Care Team (Late st Contact Info) Description 09/18/2015 Records - [facility] CONVERSION Scan, Non-Provider Social History Tobacco Use Types Packs/Day Years Used Date Smoking Tobacco: Never Assessed Comments Unknown Sex and Gender Information Value Date Recorded Sex Assigned at Female 04/19/2022 5:45 PM SIGN HANGER SUPERVISOR Legal Sex Female 4:50 AM SIGN HANGER SUPERVISOR Gender Identity Female 04/19/2022 5:45 PM SIGN HANGER SUPERVISOR Sexual Orientation Not on file documented as of this encounter Plan of Treatment Not on file documented as of this encounter Visit Diagnoses Not on filedocumented in this encounter Care Teams Ceo & Founder Relationship Specialty Start Date End Date Ana Lilia Varner MD PCP - General Pediatrics 05/09/19 07/23/21 Ana Lilia Varner MD PCP - General 07/04/14 05/08/19 System, Provider Not In PCP - General Clinic 07/24/21 04/22/22 Rosalie Pendleton NP [address] [place] [address] PCP - General Family Medicine 04/23/22 Higinio Vaughn MD [address] [id number] Resident Student in organized health care education/training program 06/08/19 Fabián Starks MD [address] [address] Assigned PCP 07/04/20 11/07/20 Ana Lilia Varner MD [facility] [address] [place], [place] 68[address] Assigned PCP 11/08/20 07/26/21 Fabián Starks MD [address] [address]25[address] Assigned PCP 07/27/21 12/19/21 Rosalie Pendleton NP [address] [place] [address] Assigned PCP 12/20/21 06/17/24 [place] [address] [place] [address] Assigned OBGYN Provider 04/25/22 Denny Dixon MD [address] [place] [address] Assigned PCP 06/18/24 09/14/24 Rosalie Pendleton NP [address] [place] [address] Assigned PCP 09/15/24 documented as of this encounter
--- OUTSIDE RECORDS SUMMARY | 2025-01-04 17:19 | XMS_ITS | Encounter Summary ---
Author Organization [facility] Address [address] [place] [address]. [place] [address] Care Team Providers Care Metal Lather Name Role Phone Higinio Vaughn MD Unavailable [phone] Rosalie Pendleton NP Primary Care Provider [phone] Denny Dixon MD Unavailable [phone] Rosalie Pendleton NP Unavailable [phone] Encounter Details Date Type Department Care Team (Late st Contact Info) Description 07/28/2024 MyC Medical Advice [facility] [place] [address] [facility] [address] [place] [phone] Fabián Starks MD [address] [facility] [address] [place], [place] [id number] Social History Tobacco Use Types Packs/Day Years [...] Sex Assigned at Female 04/19/2022 5:45 PM CHOKER HOOKER Legal Sex Female 4:50 AM CHOKER HOOKER Gender Identity Female 04/19/2022 5:45 PM CHOKER HOOKER Sexual Orientation Not on file documented as of this encounter Plan of Treatment Not on file documented as of this encounter Visit Diagnoses Not on filedocumented in this encounter Additional Health Concerns Assessment Noted Time PHQ-9 Depression Total Score: 9 03/17/20 23 4:13 PM CHOKER HOOKER documented as of this encounter Care Teams Metal Lather Relationship Specialty Start Date End Date Rosalie Pendleton NP [address] [place] [address] PCP - General Family Medicine 04/23/22 Higinio Vaughn MD [address] [address] Resident Student in organized health care education/training program 06/08/19 Denny Dixon MD [address] [place] [address] [address] Assigned PCP 06/18/24 09/14/24 Rosalie Pendleton NP [address] [place] [address] [place] [address] Assigned PCP 09/15/24 documented as of this encounter
--- OUTSIDE RECORDS SUMMARY | 2025-01-04 17:19 | XMS_ITS | Encounter Summary ---
Author Organization [facility] Address [address] [place] [address]. [place] [address] Care Team Providers Care Social Group Worker Name Role Phone Higinio Vaughn MD Unavailable [phone] Rosalie Pendleton NP Primary Care Provider [phone] Denny Dixon MD Unavailable [phone] Rosalie Pendleton NP Unavailable [phone] Reason for Visit * Reason Onset Date Comments Refill Request 07/09/2024 Encounter Details Date Type Department Care Team (Late st Contact Info) Description 07/09/2024 MyC Refill [address] [address] Hank Payne MD [address] [place] [address] Refill Request Social History Tobacco Use Types Packs/Day Years [...] in an abandoned building, in an overnight residential, or couch-surfing.) Yes 03/17/2023 Are you worried [...] Sex Assigned at Female 04/19/2022 5:45 PM CAR SWEEPER Legal Sex Female 4:50 AM CAR SWEEPER Gender Identity Female 04/19/2022 5:45 PM CAR SWEEPER Sexual Orientation Not on file documented as of this encounter Plan of Treatment Not on file documented as of this encounter Visit Diagnoses Diagnosis General counseling for prescription of oral contraceptives documented in this encounter Additional Health Concerns Assessment Noted Time PHQ-9 Depression Total Score: 9 03/17/20 23 4:13 PM CAR SWEEPER documented as of this encounter Care Teams Social Group Worker Relationship Specialty Start Date End Date Rosalie Pendleton NP [address] [place] [address] PCP - General Family Medicine 04/23/22 Higinio Vaughn MD [address] [address] Resident Student in organized health care education/training program 06/08/19 Denny Dixon MD [address] [place] [address] [address] Assigned PCP 06/18/24 09/14/24 Rosalie Pendleton NP [address] [facility] [place] [address] Assigned PCP 09/15/24 documented as of this encounter
--- OUTSIDE RECORDS SUMMARY | 2025-01-04 17:19 | XMS_ITS | Encounter Summary ---
Author Organization [facility] Address [address], [place] [address] Care Team Providers Care Automation Mechanic Name Role Phone No Primary/Referring, Phy Primary Care Provider Unavailable Reason for Visit * Reason Comments QUESTIONS, GENERAL Pt would like to kno w if its ok to f/u in 2 wks for PT, will continue to work on exercises, ok with email or cb Encounter Details Date Type Department Care Team (Late st Contact Info) Description 07/27/2024 Telephone [facility] Physical Therapy [address] [place] [address] Marcello Leyva, PT [address] [place] [address] QUESTIONS, GENERAL (Pt would like to know if its ok to f/u in 2 wks for PT, will continue to work on exercises, ok with email or cb ) Social History Tobacco Use Types Packs/Day Years [...] documented as of this encounter Nursing Notes * Russell Lockwood - 07/27/2024 3:12 PM CDT Please detail the reason for your call: Pt would like to know if its ok to f/u in 2 wks for PT, will continue to work on exercises, ok with email or cb Is it okay to leave a detailed message on your voicemail? Yes *The therapist will get back to you within three business days. If your call is related to symptomsand you have concerns please contact your Primary Care or referring provider. documented in this encounter Plan of Treatment Upcoming Encounters Date Type Department Care Team (Late st Contact Info) Description 01/18/2025 9:00 AM CDT Appointment [facility] [address] [place] [phone] Marcello Leyva, PT [address] [place] [id number] 02/08/2025 9:45 AM CDT Appointment [facility] [address] [place] [phone] Marcello Leyva, PT [address] [place] [address] 03/01/2025 9:00 AM CARPENTER HELPER [place] FLOORING Appointment [facility] [address] [place] [phone] Marcello Leyva, PT [address] [place] [id number] 06/28/2025 8:00 AM CARPENTER HELPER [employer] FLOORING Appointment [facility] [place] [address] [place] [address] Nii Love MD [address] [facility] [place] [address] documented as of this encounter Visit Diagnoses Not on filedocumented in this encounter Care Teams Automation Mechanic Relationship Specialty Start Date End Date No Primary/Referring, Phy PCP - General 01/12/21 documented as of this encounter
--- OUTSIDE RECORDS SUMMARY | 2025-01-04 17:19 | XMS_ITS | CCD ---
Author Name [id number] Address [address] [place] [address] [place] [address] Reason for Visit Social History Date Name Value 12/23/2024 Sex Female
--- OUTSIDE RECORDS SUMMARY | 2025-01-04 17:20 | XMS_ITS | Encounter Summary ---
Author Organization [facility] Address [address] [place] [address] Care Team Providers Care Test Fixture Designer Name Role Phone Ana Lilia Varner MD Primary Care Provide r Higinio Vaughn MD Unavailable [phone] Fabián Starks MD Unavailable [phone] Ana Lilia Varner MD Unavailable System, Provider Not In Primary Care Provider Un available Fabián Starks MD Unavailable Rosalie Pendleton NP Unavailable [phone] Rosalie Pendleton NP Primary Care Provider Mitzi Mendez DO Unavailable [phone] Denny Dixon MD Unavailable [phone] Rosalie Pendleton NP Unavailable [phone] Encounter Details Date Type Department Care Team (Latest Contact Info) Description 10/13/2019 Historic Results Social History Tobacco Use Types Packs/Day Years Used Date Smoking Tobacco: Never Smokeless Tobacco: Never Comments Unknown Sex and Gender Information Value Date Recorded Sex Assigned at Female 04/19/2022 5:45 PM ELECTROTYPE MOLDER Legal Sex Female 4:50 AM ELECTROTYPE MOLDER Gender Identity Female 04/19/2022 5:45 PM ELECTROTYPE MOLDER Sexual Orientation Not on file documented as of this encounter Plan of Treatment Not on file documented as of this encounter Visit Diagnoses Not on filedocumented in this encounter Additional Health Concerns Assessment Noted Time PHQ-9 Depression Total Score: 10 021 12:56 AM CDT documented as of this encounter Care Teams Test Fixture Designer Relationship Specialty Start Date End Date Ana Lilia Varner MD PCP - General Pediatrics 05/09/19 07/23/21 System, Provider Not In PCP - General Clinic 07/24/21 04/22/22 Rosalie Pendleton NP [address] [place], [place] [phone] PCP - General Family Medicine 04/23/22 Higinio Vaughn MD [address] [address] Resident Student in organized health care education/training program 06/08/19 Fabián Starks MD [address] [address] Assigned PCP 07/04/20 11/07/20 Ana Lilia Varner MD [facility] [address] [place] [address] Assigned PCP 11/08/20 07/26/21 Fabián Starks MD [address] [address] Assigned PCP 07/27/21 12/19/21 Rosalie Pendleton NP [address] [place] [address] Assigned PCP 12/20/21 06/17/24 [place] [address] [address] [address] Assigned OBGYN Provider 04/25/22 Denny Dixon MD [address] [place] [address] [address] Assigned PCP 06/18/24 09/14/24 Rosalie Pendleton NP [address] [place] [address] [address] Assigned PCP 09/15/24 documented as of this encounter
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
--- OUTSIDE RECORDS SUMMARY | 2025-01-04 17:20 | XMS_ITS | Encounter Summary ---
Author Organization [facility] Address [address] [place] [address]. [place] [address] Care Team Providers Care Lead Janitor Name Role Phone Higinio Vaughn MD Unavailable [phone] Rosalie Pendleton NP Primary Care Provider [phone] Rosalie Pendleton NP Unavailable [phone] Encounter Details Date Type Department Care Team (Late st Contact Info) Description 11/15/2024 [facility] Medical Advice [facility] [address] [place] [address] Rosalie Pendleton NP [address] [facility] [place] [address] Social History Tobacco Use Types Packs/Day Years [...] in an abandoned building, in an overnight fdc, or couch-surfing.) Yes 03/17/2023 Are you worried [...] Sex Assigned at Female 04/19/2022 5:45 PM SUPPLY ROOM CLERK Legal Sex Female 4:50 AM SUPPLY ROOM CLERK Gender Identity Female 04/19/2022 5:45 PM SUPPLY ROOM CLERK Sexual Orientation Not on file documented as of this encounter Plan of Treatment Not on file documented as of this encounter Visit Diagnoses Not on filedocumented in this encounter Additional Health Concerns Assessment Noted Time PHQ-9 Depression Total Score: 9 03/17/20 23 4:13 PM SUPPLY ROOM CLERK documented as of this encounter Care Teams Lead Janitor Relationship Specialty Start Date End Date Rosalie Pendleton NP [address] [place] [address] [address] PCP - General Family Medicine 04/23/22 Higinio Vaughn MD [address] [address] Resident Student in organized health care education/training program 06/08/19 Rosalie Pendleton NP [address] [place] [address] [address] Assigned PCP 09/15/24 documented as of this encounter
--- OUTSIDE RECORDS SUMMARY | 2025-01-04 17:20 | XMS_ITS | Encounter Summary ---
Author Organization [facility] Address [address] [place] [address]. [place] [address] Care Team Providers Care Mangle Roller Name Role Phone Higinio Vaughn MD Unavailable [phone] Rosalie Pendleton NP Primary Care Provider Rosalie Pendleton NP Unavailable [phone] Reason for Visit * Reason Onset Date Comments Refill Request 12/27/2024 Levothyroxine 88 mg tablet Encounter Details Date Type Department Care Team (Late st Contact Info) Description 12/27/2024 Refill [facility] [address] [place] [address] Fabián Starks MD [address] [place] [address] [address] [place] [address] Refill Request (Levothyroxine 88 mg tablet ) Social History Tobacco Use Types Packs/Day [...] in an abandoned building, in an overnight retirement, or couch-surfing.) Yes 03/17/2023 Are you worried [...] Sex Assigned at Female 04/19/2022 5:45 PM DEPENDENCY PROGRAM DIRECTOR Legal Sex Female 4:50 AM DEPENDENCY PROGRAM DIRECTOR Gender Identity Female 04/19/2022 5:45 PM DEPENDENCY PROGRAM DIRECTOR Sexual Orientation Not on file documented as of this encounter Miscellaneous Notes * Telephone Encounter - Bambi Garrett MA - 12/27/2024 1:06 PM CDT Refill request received from: [facility] Medication Requested: Levothyroxine 88 mg tablet Directions:as directed Quantity:90 Last Office Visit: 10/08/2023 Next Appointment Scheduled for: none scheduled Last refill: 09/25/2024 Sent To: RN or Provider documented in this encounter Plan of Treatment Not on file documented as of this encounter Visit Diagnoses Diagnosis Abnormal finding on thyroid function test Nonspecific abnormal results of thyroid function study documented in this encounter Additional Health Concerns Assessment Noted Time PHQ-9 Depression Total Score: 9 03/17/20 23 4:13 PM DEPENDENCY PROGRAM DIRECTOR documented as of this encounter Care Teams Mangle Roller Relationship Specialty Start Date End Date Rosalie Pendleton NP [address] [place] [address] [address] PCP - General Family Medicine 04/23/22 Higinio Vaughn MD [address] [address] Resident Student in organized health care education/training program 06/08/19 Rosalie Pendleton NP [address] [place] [address] [address] Assigned PCP 09/15/24 documented as of this encounter
--- OUTSIDE RECORDS SUMMARY | 2025-01-04 17:20 | XMS_ITS | Clinical Summary ---
Author Organization [facility] Address [facility]ly [facility] [place] [address] Care Team Providers Care Medical Certification Specialist Name Role Phone Rosalie Pendleton NP Primary Care Provide r Allergies No known active allergies Medications levothyroxine (SYNTHROID) 25 mcg tablet Take 25 mcg by mouth before breakfast. Active QUEtiapine (SEROQUEL) 25 mg tablet 04/22/2022 Active norgestrel-ethin yl estradiol, 0.3-30 mg-mcg, (LO-OVRAL) 0.3-30 mg-mcg tablet Take 1 Tablet by mouth once daily. 12/09/2021 Active desvenlafaxine succinate (PRISTIQ) 50 mg Extended-Release tablet 50 mg. 06/22/2020 Active propranoloL (INDERAL) 10 mg tablet Take 10 mg by mouth three times daily. 08/26/2023 Active traZODone (DESYREL) 100 mg tablet Take 100 mg by mouth at bedtime. 03/26/2023 Active dextroamphetamin e-amphetamine (ADDERALL XR) 5 mg Extended-Release capsule Take 5 mg by mouth once daily. 03/27/2024 Active dextroamphetamin e-amphetamine (ADDERALL XR) 10 mg Extended-Release capsule Take 10 mg by mouth once daily. Active Active Problems Problem Noted Date Diagnosed Date Irritable bowel syndrome wit h both constipation and diarrhea 06/21/2024 Immunizations Immunization Administration Dates Next Due Tdap 06/21/2024,12/06/2014 Family History Medical History Relation Name Comments Good Health Brother Anxiety disorder Father Depression Father Hypertension Father Rheum arthritis Mother Good Health Sister Relation Name Status Comments Brother Father Mother Sister Social History Tobacco Use Types Packs/Day Years Used Date Smoking Tobacco: Never Smokeless Tobacco: Never Tobacco Cessation:Counseling Given: No Comments:Nicotine pouch Alcohol Use Standard Drinks/Week Comments Not Currently 0 (1 standard drink = 0.6 oz pur e alcohol) Social Connections Answer Date Recorded Do you often feel lonely or isolated from those around you? 0 09/17/2023 Financial Resource Strain Answer Date R ecorded Difficulty of Paying Living Expenses 3 09/17/2023 Difficulty of Paying Living Expenses Not on file 09/17/2023 Food Insecurity Answer Date Recorded Do you worry your food will run out before you are able to buy more? 1 09/17/2023 Transportation Needs Answer Date Record ed Does lack of transportation keep you from medica l appointments? 1 09/17/2023 Does lack of transportation keep you from work, meetings or getting things that you need? 1 09/17/2023 Housing Stability Answer Date Recorded What is your housing situation today? 1 09/17/2023 Utilities Answer Date Recorded Do you have trouble paying f or utilities (for example, heat, electricity, water, phone)? 1 09/17/2023 Comments No Sex and Gender Information Value Date Recorded Sex Assigned at Not on file Legal Sex Female 7:05 AM EMT/PARAMEDIC Gender Identity Not on file Sexual Orientation Not on file Obstetrics History Last Filed Vital Signs Vital Sign Reading Time Taken Comments Blood Pressure 89/58 06/21/2024 7:34 AM EMT/PARAMEDIC Pulse 65 06/21/2024 7:34 AM EMT/PARAMEDIC Temperature 36.8 C (98.2 F) 06/21/2024 7:34 AM EMT/PARAMEDIC Respiratory Rate 16 04/26/2022 12:59 PM EMT/PARAMEDIC Oxygen Saturation 100% 06/21/2024 7:34 AM EMT/PARAMEDIC Inhaled Oxygen Concentration - - Weight 68.2 kg (150 lb 6.4 oz) 06/21/2024 7:34 A M EMT/PARAMEDIC Height 170.2 cm (5' 7) 06/21/2024 7:34 AM EMT/PARAMEDIC Body Mass Index 23.56 06/21/2024 7:34 AM EMT/PARAMEDIC Plan of Treatment Health Maintenance Due Date Last Done Comments Depression screening for age 12+ 2015 HIV for age 15-65 12/04/2018 HPV series for age 9-45 (1 - 3-dose series) 12/04/2018 Chlamydia for age 16-24 2019 Hepatitis C screening for ag e 18-79 12/04/2021 Hepatitis B series for 19+ ( 1 of 3 - 19+ 3-dose series) 12/04/2022 Pap test for age 21-65 12/04/2024 COVID-19 vaccine series (3 - 2024- season) 2024 12/21/2020, 11/30/2020 Influenza Vaccine (#1) 2024 BMI (ht and wt on same day) for age 18+ 06/21/2025 06/21/2024 Tetanus booster 06/21/2034 06/21/2024, 12/06/2014 RSV vaccine for adults or (1 - 1-dose 75+ series) 12/04/2078 Meningococcal series for age 11-21 Aged Out No longer eligible b ased on patient's age to complete this topic Pneumococcal series for age 6-49 Aged Out No longer eligible b ased on patient's age to complete this topic Insurance [facility] [place] [address] [employer] Care Teams Medical Certification Specialist Relationship Specialty Start Date End Date Rosalie Pendleton NP PCP - General Nurse Practitioner - Family 04/26/22
--- OUTSIDE RECORDS SUMMARY | 2025-01-04 17:20 | XMS_ITS | Encounter Summary ---
Author [facility] Address [address] [place] [address]. [place] [address] Care Team Providers Care Hay Stacker Name Role Phone Higinio Vaughn MD Unavailable Rosalie Pendleton NP Primary Care Provider [phone] Rosalie Pendleton NP Unavailable [phone] Reason for Visit * Reason Onset Date Comments Left Message To Call 12/27/2024 Encounter Details Date Type Department Care Team (Late st Contact Info) Description 12/27/[address] [facility] [address] [place] [address] Fabián Starks MD [address] [place] [address] [address] [place] [address] Left Message To Call Social History Tobacco Use Types Packs/Day Years [...] in an abandoned building, in an overnight mcfp, or couch-surfing.) Yes 03/17/2023 Are you worried [...] Sex Assigned at Female 04/19/2022 5:45 PM CEMENT GRINDING MILL OPERATOR Legal Sex Female 4:50 AM CEMENT GRINDING MILL OPERATOR Gender Identity Female 04/19/2022 5:45 PM CEMENT GRINDING MILL OPERATOR Sexual Orientation Not on file documented as of this encounter Miscellaneous Notes * Telephone Encounter - Bambi Garrett MA - 12/27/2024 1:09 PM CDT Left message to call to schedule follow up Bambi Grimes MA documented in this encounter Plan of Treatment Not on file documented as of this encounter Visit Diagnoses Not on filedocumented in this encounter Additional Health Concerns Assessment Noted Time PHQ-9 Depression Total Score: 9 03/17/20 23 4:13 PM CEMENT GRINDING MILL OPERATOR documented as of this encounter Care Teams Hay Stacker Relationship Specialty Start Date End Date Rosalie Pendleton NP [address] [place] [address] PCP - General Family Medicine 04/23/22 Higinio Vaughn MD [address] [address] Resident Student in organized health care education/training program 06/08/19 Rosalie Pendleton NP [address] [place] [address] Assigned PCP 09/15/24 documented as of this encounter
--- OUTSIDE RECORDS SUMMARY | 2025-01-04 17:20 | XMS_ITS | Encounter Summary ---
Author Organization [facility] Address [address] [place] [address] Care Team Providers Care It Applications Developer Name Role Phone Ana Lilia Varner MD Primary Care Provide r Higinio Vaughn MD Unavailable [phone] Ana Lilia Varner MD Primary Care Provide r Fabián Starks MD Unavailable Ana Lilia Varner MD Unavailable System, Provider Not In Primary Care Provider Un available Fabián Starks MD Unavailable Rosalie Pendleton NP Unavailable [phone] Rosalie Pendleton NP Primary Care Provider [phone] Mitzi Mendez DO Unavailable [phone] Denny Dixon MD Unavailable [phone] Rosalie Pendleton NP Unavailable [phone] Encounter Details Date Type Department Care Team (Late st Contact Info) Description 10/06/2016 Records - [facility] CONVERSION Scan, Non-Provider Social History Tobacco Use Types Packs/Day Years Used Date Smoking Tobacco: Never Assessed Comments Unknown Sex and Gender Information Value Date Recorded Sex Assigned at Female 04/19/2022 5:45 PM STAPLER MACHINE Legal Sex Female 4:50 AM STAPLER MACHINE Gender Identity Female 04/19/2022 5:45 PM STAPLER MACHINE Sexual Orientation Not on file documented as of this encounter Plan of Treatment Not on file documented as of this encounter Visit Diagnoses Not on filedocumented in this encounter Care Teams It Applications Developer Relationship Specialty Start Date End Date Ana Lilia Varner MD PCP - General Pediatrics 05/09/19 07/23/21 Ana Lilia Varner MD PCP - General 07/04/14 05/08/19 System, Provider Not In PCP - General Clinic 07/24/21 04/22/22 Rosalie Pendleton NP [address] [place] [address] PCP - General Family Medicine 04/23/22 Higinio Vaughn MD [address] [address] Resident Student in organized health care education/training program 06/08/19 Fabián Starks MD [address] [address] Assigned PCP 07/04/20 11/07/20 Ana Lilia Varner MD [facility] [address] [place], [place] [address] Assigned PCP 11/08/20 07/26/21 Fabián Starks MD [address] [id number] Assigned PCP 07/27/21 12/19/21 Rosalie Pendleton NP [address] [place] [address] Assigned PCP 12/20/21 06/17/24 [place] [address] [place] [address] Assigned OBGYN Provider 04/25/22 Denny Dixon MD [address] [place] [address] Assigned PCP 06/18/24 09/14/24 Rosalie Pendleton NP [address] [facility] [place] [address] Assigned PCP 09/15/24 documented as of this encounter
--- OUTSIDE RECORDS SUMMARY | 2025-01-04 17:20 | XMS_ITS | Encounter Summary ---
Author Organization [facility] Address [address] [place] [address]. [place] [address] Care Team Providers Care Legal Researcher Name Role Phone Higinio Vaughn MD Unavailable [phone] Rosalie Pendleton NP Primary Care Provider [phone] Rosalie Pendleton NP Unavailable [phone] Encounter Details Date Type Department Care Team (Late st Contact Info) Description 12/26/2024 [facility] Medical Advice [facility] [address] [place] [address] Raya RMA Social History Tobacco Use Types Packs/Day Years [...] Answer Date Recorded Do you have housing? (Housin g is defined as stable permanent housing and does not include staying outside in a car, in a tent, in an abandoned building, in an overnight usp, or couch-surfing.) Yes 03/17/2023 Are you worried [...] Sex Assigned at Female 04/19/2022 5:45 PM BRUSH MAKER MACHINE Legal Sex Female 4:50 AM BRUSH MAKER MACHINE Gender Identity Female 04/19/2022 5:45 PM BRUSH MAKER MACHINE Sexual Orientation Not on file documented as of this encounter Plan of Treatment Not on file documented as of this encounter Visit Diagnoses Not on filedocumented in this encounter Additional Health Concerns Assessment Noted Time PHQ-9 Depression Total Score: 9 03/17/20 23 4:13 PM BRUSH MAKER MACHINE documented as of this encounter Care Teams Legal Researcher Relationship Specialty Start Date End Date [place] [address] PCP - General Family Medicine 04/23/22 Higinio Vaughn MD [address] [address] Resident Student in organized health care education/training program 06/08/19 oRsalie Pendleton NP [address] [place] [address] [address] Assigned PCP 09/15/24 documented as of this encounter
--- OUTSIDE RECORDS SUMMARY | 2025-01-04 17:20 | XMS_ITS | Encounter Summary ---
Author Organization [facility] Address [address] [place] [address] Care Team Providers Care Printing Film Stripper Name Role Phone Ana Lilia Varner MD Primary Care Provide r Higinio Vaughn MD Unavailable [phone] Ana Lilia Varner MD Unavailable System, Provider Not In Primary Care Provider Un available Fabián Starks MD Unavailable Rosalie Pendleton NP Unavailable [phone] Rosalie Pendleton NP Primary Care Provider Mitzi Mendez DO Unavailable Denny Dixon MD Unavailable Rosalie Pendleton NP Unavailable [phone] Encounter Details Date Type Department Care Team (Late st Contact Info) Description 12/27/2020 [facility] [place] [address] [place] [address] Ana Lilia Varner MD [facility] [address] [place] [address] Social History Tobacco Use Types Packs/Day Years Used Date Smoking Tobacco: Never Smokeless Tobacco: Never Comments:no secondhand smoke exposure Alcohol Use Standard Drinks/Week Comments Not Asked 0 (1 standard drink = 0.6 oz pur e alcohol) PHQ-2 Answer Date Recorded PHQ-2 Score 1 10/10/2020 Comments Unknown Sex and Gender Information Value Date Recorded Sex Assigned at Female 04/19/2022 5:45 PM VAT HOUSE SUPERVISOR Legal Sex Female 4:50 AM VAT HOUSE SUPERVISOR Gender Identity Female 04/19/2022 5:45 PM VAT HOUSE SUPERVISOR Sexual Orientation Not on file documented as of this encounter Miscellaneous Notes * Telephone Encounter - Carolyn Ramirez CMA - 12/27/2020 8:17 AM CDT Documented COVID vaccine in patient's immunization record. documented in this encounter Plan of Treatment Not on file documented as of this encounter Visit Diagnoses Not on filedocumented in this encounter Additional Health Concerns Assessment Noted Time PHQ-9 Depression Total Score: 3 10/30/19 21 7:36 PM CDT documented as of this encounter Care Teams Printing Film Stripper Relationship Specialty Start Date End Date Ana Lilia Varner MD PCP - General Pediatrics 05/09/19 07/23/21 System, Provider Not In PCP - General Clinic 07/24/21 04/22/22 Rosalie Pendleton NP [address] [place] [address] [place] [address] PCP - General Family Medicine 04/23/22 Higinio Vaughn MD [address] [id number] Resident Student in organized health care education/training program 06/08/19 Ana Lilia Varner MD [facility] [address] [place] [address] Assigned PCP 11/08/20 07/26/21 Fabián Starks MD [address] [address] Assigned PCP 07/27/21 12/19/21 Rosalie Pendleton NP [address] [place] [address] Assigned PCP 12/20/21 06/17/24 [place] [address] [place] [address] Assigned OBGYN Provider 04/25/22 Denny Dixon MD [address] [place] [address] Assigned PCP 06/18/24 09/14/24 Rosalie Pendleton NP [address] [facility] [place] [address] Assigned PCP 09/15/24 documented as of this encounter
--- OUTSIDE RECORDS SUMMARY | 2025-01-04 17:20 | XMS_ITS | Encounter Summary ---
Author Organization [facility] Address [address] [place] [address]. [place] [address] Care Team Providers Care Enrollment Clerk Name Role Phone Higinio Vaughn MD Unavailable [phone] Rosalie Pendleton NP Unavailable [phone] Rosalie Pendleton NP Primary Care Provider [phone] Denny Dixon MD Unavailable [phone] Rosalie Pendleton NP Unavailable [phone] Reason for Visit * Reason Comments Medication Refill Encounter Details Date Type Department Care Team (Late st Contact Info) Description 03/28/2024 Refill [facility] [address] [place] [phone] Rosalie Pendleton NP [address] [place] [phone] Medication Refill Social History Tobacco Use Types [...] in an abandoned building, in an overnight senior care, or couch-surfing.) Yes 03/17/2023 Are you worried [...] Sex Assigned at Female 04/19/2022 5:45 PM REAL ESTATE INVESTOR Legal Sex Female 4:50 AM REAL ESTATE INVESTOR Gender Identity Female 04/19/2022 5:45 PM REAL ESTATE INVESTOR Sexual Orientation Not on file documented as of this encounter Plan of Treatment Not on file documented as of this encounter Visit Diagnoses Diagnosis General counseling for prescription of oral contraceptives documented in this encounter Additional Health Concerns Assessment Noted Time PHQ-9 Depression Total Score: 9 03/17/20 23 4:13 PM REAL ESTATE INVESTOR documented as of this encounter Care Teams Enrollment Clerk Relationship Specialty Start Date End Date Rosalie Pendleton NP [address] [facility] [place] [address] PCP - General Family Medicine 04/23/22 Higinio Vaughn MD [address] [address] Resident Student in organized health care education/training program 06/08/19 Rosalie Pendleton NP [address] [place] [address] [address] Assigned PCP 12/20/21 06/17/24 Denny Dixon MD [address] [place] [address] [address] Assigned PCP 06/18/24 09/14/24 Rosalie Pendleton NP [address] [facility] [address] [address] Assigned PCP 09/15/24 documented as of this encounter
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
--- OUTSIDE RECORDS SUMMARY | 2025-01-04 17:20 | XMS_ITS | Encounter Summary ---
Author Organization [facility] Address [address] [place] [address] Care Team Providers Care Web Marketing Manager Name Role Phone Ana Lilia Varner MD Primary Care Provide r Higinio Vaughn MD Unavailable [phone] Fabián Starks MD Unavailable [phone] Ana Lilia Varner MD Unavailable System, Provider Not In Primary Care Provider Un available Fabián Starks MD Unavailable Rosalie Pendleton NP Unavailable Rosalie Pendleton NP Primary Care Provider Mitzi Mendez DO Unavailable [phone] Denny Dixon MD Unavailable [phone] Rosalie Pendleton NP Unavailable [phone] Reason for Visit * Reason Comments Other Med Check; 3 mo. Encounter Details Date Type Department Care Team (Late st Contact Info) Description 10/10/2020 Office Visit - [facility] [address] [place] [address] Ana Lilia Varner MD [facility] [address] [place] [address] Irregular menses Social History Tobacco Use Types Packs/Day Years Used Date Smoking Tobacco: Never Smokeless Tobacco: Never PHQ-2 Answer Date Recorded PHQ-2 Score 1 10/10/2020 Comments Unknown Sex and Gender Information Value Date Recorded Sex Assigned at Female 04/19/2022 5:45 PM DAY CARE DIRECTOR Legal Sex Female 4:50 AM DAY CARE DIRECTOR Gender Identity Female 04/19/2022 5:45 PM DAY CARE DIRECTOR Sexual Orientation Not on file documented as of this encounter Progress Notes * Ana Lilia Varner MD - 10/10/2020 1:45 PM CDT [facility] VIDEO Acute Visit Note: The patient has been notified of following: This video visit will be conducted via a call between you and your physician/provider. We have found that certain health care needs can be provided without the need for an in-person physical exam. This service lets us provide the care you need with a video conversation. If a prescription is necessary we can send it directly to your pharmacy. If lab work is needed we can place an order for that and you can then stop by our lab to have the test done at a later time. Video visits are billed at different rates depending on your insurance coverage. Please reach out to your insurance provider with any questions. If during the course of the call the physician/provider feels a video visit is not appropriate, youwill not be charged for this service. Patient has given verbal consent to a Video visit? Yes Patient would like to receive their AVS by AVS Preference: Jethro. Patient would like the video invitation sent by: Text to cell phone: [phone] Will anyone else be joining your video visit from another phone/email address? No Video Start Time: 1:46 pm Video-Visit Details Type of service: Video Visit Video End Time (time video stopped): 2:08 pm (22 minutes) Originating Location (pt. Location): Home Distant Location (provider location): [facility] Mode of Communication: Video Conference via excentos CHIEF COMPLAINT: Chief Complaint Patient presents with ??? Med Check 3 mo. HISTORY OF PRESENT ILLNESS: Amber Nam is a 14 y.o. female who is being evaluated via a billable video visit due to the ongoing COVID-19 pandemic. Start: 1:46 pm End: 2:08 pm She was last seen on 07/17/2020 via office visit for 14 year physical. Due to a history of irregularmenses, she was started on oral contraceptives. She has been taking them daily since that time and is being seen today for a medication check. She states that her mood was a little off when she first started the medication. She describes this as feeling white, but this improved within a week and she now feels much more even. With her first period, she had heavy bleeding for 2-3 days and then the second period the bleeding was a bit environmental engineering manager. She is due for her third period [...] a physical therapist. Father works as an lead java developer architect. Going into senior year at [employer] MEDICATIONS: Current Outpatient Medications Medication Sig Dispense [...] tablet Take 1 tablet by mouth daily. 84 tablet 2 ??? traZODone (DESYREL) 50 MG tablet [...] what do to if a dose is missed,etc. Follow up in 9 months for 15 [...] MD documented in this encounter Miscellaneous Notes * Patient Instructions - HE - Ana Lilia [...] worse headache of your life, and chest pain,shortness of breath, or calf pain. ??? NEVER smoke while on control, this increases your risk for clotting. ??? control does not protect against STD???s and a second method of protection is necessary if you become sexually active ??? The general failure rate when taken by teens can be as high as 8% risk of . ??? I have prescribed an additional 9 months supply-you will need to be seen for a 15 year physicalin about 8-9 months. Please let me know [...] documented as of this encounter Care Teams Web Marketing Manager Relationship Specialty Start Date End Date Ana Lilia Varner MD PCP - General Pediatrics 05/09/19 07/23/21 System, Provider Not In PCP - General Clinic 07/24/21 04/22/22 [facility] [place] [address] PCP - General Family Medicine 04/23/22 Higinio Vaughn MD [address] [place] [address] Resident Student in organized health care education/training program 06/08/19 Fabián Starks MD [address] [address] Assigned PCP 07/04/20 11/07/20 Ana Lilia Varner MD [facility] [address] [place] [address] Assigned PCP 11/08/20 07/26/21 Fabián Starks MD [address] [address] Assigned PCP 07/27/21 12/19/21 Rosalie Pendleton NP [address] [place] [address] Assigned PCP 12/20/21 06/17/24 [place] [address] [place] [address] Assigned OBGYN Provider 04/25/22 Denny Dixon MD [address] [place] [address] Assigned PCP 06/18/24 09/14/24 Rosalie Pendleton [facility] [place] [address] Assigned PCP 09/15/24 documented as of this encounter
--- OUTSIDE RECORDS SUMMARY | 2025-01-04 17:20 | XMS_ITS | Encounter Summary ---
Author Organization [facility] Address [address] [place] [address] Care Team Providers Care College Admissions Counselor Name Role Phone Higinio Vaughn MD Unavailable [phone] System, Provider Not In Primary Care Provider Un available Fabián Starks MD Unavailable [phone] Rosalie Pendleton NP Unavailable [phone] Rosalie Pendleton NP Primary Care Provider [phone] Mitzi Mendez DO Unavailable [phone] Denny Dixon MD Unavailable [phone] Rosalie Pendleton NP Unavailable [phone] Encounter Details Date Type Department Care Team (Late st Contact Info) Description 07/28/2021 [facility] [address] [phone] [facility] Social History Tobacco Use Types Packs/Day Years Used Date Smoking Tobacco: Never Smokeless Tobacco: Never Comments:no secondhand smoke exposure Alcohol Use Standard Drinks/Week Comments Never 0 (1 standard drink = 0.6 oz pur e alcohol) PHQ-2 Answer Date Recorded PHQ-2 Score 1 10/10/2020 Comments Unknown Sex and Gender Information Value Date Recorded Sex Assigned at Female 04/19/2022 5:45 PM LIFT MECHANIC Legal Sex Female 4:50 AM LIFT MECHANIC Gender Identity Female 04/19/2022 5:45 PM LIFT MECHANIC Sexual Orientation Not on file COVID-19 Exposure Response Date Recorded In the last month, have you been in contact with 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 No / Unsure 07/24/2021 9:26 AM CDT documented as of this encounter Plan of Treatment Not on file documented as of this encounter Visit Diagnoses Not on filedocumented in this encounter Additional Health Concerns Assessment Noted Time PHQ-9 Depression Total Score: 3 10/30/19 21 7:36 PM CDT documented as of this encounter Care Teams College Admissions Counselor Relationship Specialty Start Date End Date System, Provider Not In PCP - General Clinic 07/24/21 04/22/22 Rosalie Pendleton NP [address] [place] [address] PCP - General Family Medicine 04/23/22 Higinio Vaughn MD [address] [address] Resident Student in organized health care education/training program 06/08/19 Fabián Starks MD [facility] [address] [address] Assigned PCP 07/27/21 12/19/21 Rosalie Pnedleton NP [address] [place] [address] Assigned PCP 12/20/21 06/17/24 [place] [address] [place] [address] Assigned OBGYN Provider 04/25/22 Denny Dixon MD [address] [place] [address] Assigned PCP 06/18/24 09/14/24 Rosalie Pendleton NP [address] [place] [address] Assigned PCP 09/15/24 documented as of this encounter
--- OUTSIDE RECORDS SUMMARY | 2025-01-04 17:20 | XMS_ITS | Encounter Summary ---
Author Organization [facility] Address [address] [place] [address] Care Team Providers Care Hogshead Roller Name Role Phone Higinio Vaughn MD Unavailable [phone] Rosalie Pendleton NP Unavailable [phone] Rosalie Pendleton NP Primary Care Provider [phone] Mitzi Mendez DO Unavailable [phone] Denny Dixon MD Unavailable [phone] Rosalie Pendleton NP Unavailable [phone] Encounter Details Date Type Department Care Team (Late st Contact Info) Description 08/16/2023 [facility] Medical Advice [address] [place] [phone] Heather Carvalho MA Social History Tobacco Use Types Packs/Day Years [...] Sex Assigned at Female 04/19/2022 5:45 PM FOREIGN LANGUAGE TEACHER Legal Sex Female 4:50 AM FOREIGN LANGUAGE TEACHER Gender Identity Female 04/19/2022 5:45 PM FOREIGN LANGUAGE TEACHER Sexual Orientation Not on file documented as of this encounter Plan of Treatment Not on file documented as of this encounter Visit Diagnoses Not on filedocumented in this encounter Additional Health Concerns Assessment Noted Time PHQ-9 Depression Total Score: 9 03/17/20 23 4:13 PM FOREIGN LANGUAGE TEACHER documented as of this encounter Care Teams Hogshead Roller Relationship Specialty Start Date End Date Rosalie Pendleton NP [address] [place] [address] PCP - General Family Medicine 04/23/22 Higinio Vaughn MD [address] [place] [address] Resident Student in organized health care education/training program 06/08/19 Rosalie Pendleton NP [address] [place] [address] Assigned PCP 12/20/21 06/17/24 [place] [address] [address] [address] Assigned OBGYN Provider 04/25/22 Denny Dixon MD [address] [place] [address] [address] Assigned PCP 06/18/24 09/14/24 Rosalie Pendleton NP [address] [facility] [place] [address] Assigned PCP 09/15/24 documented as of this encounter
--- OUTSIDE RECORDS SUMMARY | 2025-01-04 17:20 | XMS_ITS | Encounter Summary ---
Author Organization [facility] Address [address] [place] [address]. [place] [address] Care Team Providers Care Caustic Strength Inspector Name Role Phone Higinio Vaughn MD Unavailable [phone] Rosalie Pendleton NP Primary Care Provider [phone] Rosalie Pendleton NP Unavailable [phone] Encounter Details Date Type Department Care Team (Latest Contact Info) Description 11/29/2024 Travel Social History Tobacco Use Types Packs/Day [...] in an abandoned building, in an overnight intermediate, or couch-surfing.) Yes 03/17/2023 Are you worried [...] Sex Assigned at Female 04/19/2022 5:45 PM TICKET SALES SUPERVISOR Legal Sex Female 4:50 AM TICKET SALES SUPERVISOR Gender Identity Female 04/19/2022 5:45 PM TICKET SALES SUPERVISOR Sexual Orientation Not on file documented as of this encounter Plan of Treatment Not on file documented as of this encounter Visit Diagnoses Not on filedocumented in this encounter Additional Health Concerns Assessment Noted Time PHQ-9 Depression Total Score: 9 03/17/20 23 4:13 PM TICKET SALES SUPERVISOR documented as of this encounter Care Teams Caustic Strength Inspector Relationship Specialty Start Date End Date Rosalie Pendleton NP [address] [place] [address] PCP - General Family Medicine 04/23/22 Higinio Vaughn MD [address] [address] Resident Student in organized health care education/training program 06/08/19 Rosalie Pendleton NP [address] [place] [address] Assigned PCP 09/15/24 documented as of this encounter
--- OUTSIDE RECORDS SUMMARY | 2025-01-04 17:20 | XMS_ITS | Encounter Summary ---
Author Organization [facility] Address [address] [place] [address]. [place] [address] Care Team Providers Care Chief Deputy Coroner Name Role Phone Higinio Vaughn MD Unavailable [phone] Rosalie Pendleton NP Primary Care Provider [phone] Rosalie Pendleton NP Unavailable [phone] Encounter Details Date Type Department Care Team (Late st Contact Info) Description 10/18/2024 [facility] [place] [facility] [address] [place] [address] Rosalie Pendleton NP [address] [facility] [place] [facility] [place] [address] Social History Tobacco Use Types Packs/Day [...] Answer Date Recorded Do you have housing? (oNble ferris is defined as stable permanent housing and does not include staying outside in a car, in a tent, in an abandoned building, in an overnight senior living, or couch-surfing.) Yes 03/17/2023 Are you worried [...] Sex Assigned at Female 04/19/2022 5:45 PM QUICKBOOKS BOOKKEEPER Legal Sex Female 4:50 AM QUICKBOOKS BOOKKEEPER Gender Identity Female 04/19/2022 5:45 PM QUICKBOOKS BOOKKEEPER Sexual Orientation Not on file documented as of this encounter Plan of Treatment Not on file documented as of this encounter Visit Diagnoses Not on filedocumented in this encounter Additional Health Concerns Assessment Noted Time PHQ-9 Depression Total Score: 9 03/17/20 23 4:13 PM QUICKBOOKS BOOKKEEPER documented as of this encounter Care Teams Chief Deputy Coroner Relationship Specialty Start Date End Date Rosalie Pendleton NP [address] [place] [address] PCP - General Family Medicine 04/23/22 Higinio Vaughn MD [address] [address] Resident Student in organized health care education/training program 06/08/19 Rosalie Pendleton NP [address] [place] [address] [address] Assigned PCP 09/15/24 documented as of this encounter
--- OUTSIDE RECORDS SUMMARY | 2025-01-04 17:20 | XMS_ITS | Encounter Summary ---
Author Organization [facility] Address [address] [place] [address] Care Team Providers Care Helicopter Pilot Instructor Name Role Phone Ana Lilia Varner MD Primary Care Provide r Higinio Vaughn MD Unavailable [phone] Fabián Starks MD Unavailable [phone] Ana Lilia Varner MD Unavailable System, Provider Not In Primary Care Provider Un available Fabián Starks MD Unavailable Rosalie Pendleton NP Unavailable [phone] Rosalie Pendleton NP Primary Care Provider Mitzi Mendez DO Unavailable [phone] Denny Dixon MD Unavailable [phone] Rosalie Pendleton NP Unavailable [phone] Encounter Details Date Type Department Care Team (Late st Contact Info) Description 07/14/2019 Records - [facility] CONVERSION Scan, Non-Provider Social History Tobacco Use Types Packs/Day Years Used Date Smoking Tobacco: Never Smokeless Tobacco: Never Comments Unknown Sex and Gender Information Value Date Recorded Sex Assigned at Female 04/19/2022 5:45 PM GLASS CUT OFF TENDER Legal Sex Female 4:50 AM GLASS CUT OFF TENDER Gender Identity Female 04/19/2022 5:45 PM GLASS CUT OFF TENDER Sexual Orientation Not on file COVID-19 Exposure Response Date Recorded In the last month, have you been in contact with 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 Yes 07/13/2019 1:03 PM CDT documented as of this encounter Plan of Treatment Not on file documented as of this encounter Visit Diagnoses Not on filedocumented in this encounter Additional Health Concerns Assessment Noted Time PHQ-9 Depression Total Score: 8 09/19/19 21 9:43 PM CDT documented as of this encounter Care Teams Helicopter Pilot Instructor Relationship Specialty Start Date End Date Ana Lilia Varner MD PCP - General Pediatrics 05/09/19 07/23/21 System, Provider Not In PCP - General Clinic 07/24/21 04/22/22 Rosalie Pendleton NP [address] [facility] [place], [place] [id number] PCP - General Family Medicine 04/23/22 Higinio Vaughn MD [address] [address] Resident Student in organized health care education/training program 06/08/19 Fabián Starks MD [address] [place], [place] [address] Assigned PCP 07/04/20 11/07/20 Ana Lilia Varner MD [facility] [address] [place], [place] [address] Assigned PCP 11/08/20 07/26/21 Fabián Starks MD [address] [place], [place] [address] Assigned PCP 07/27/21 12/19/21 Rosalie Pendleton NP [address] [place] [address] Assigned PCP 12/20/21 06/17/24 [place] [address] [place] [address] Assigned OBGYN Provider 04/25/22 Denny Dixon MD [address] [place] [address] Assigned PCP 06/18/24 09/14/24 Rosalie Pendleton NP [address] [facility] [place] [address] Assigned PCP 09/15/24 documented as of this encounter
[2025-01-04 17:37] VITALS: BP 110/71; PULSE 95; RESP 16; TEMP 37.3; O2SAT 98; BMI 21.9
--- NOTE | 2025-01-04 19:24 | ED.WOUNDLAC ---
HPI - Wound/Laceration General Date Seen: 01/04/25 Chief Complaint: Laceration/Wound Stated Complaint: cut by skate, inner thigh Time Seen by Provider: 01/04/25 18:41 Source: patient Mode of arrival: ambulatory Limitations: no limitations History of Present Illness HPI narrative: Patient is a 19-year-old female presenting to the emergency department for a cut to her left inner thigh by hockey skemilie V p.m. today. She was at [employer] when this occurred. No other injuries noted. No other concerns noted. Last tetanus was earlier this year. Related Data Home Medications ?Medication ?Instructions ?Recorded ?Confirmed trazodone 50 mg tablet 75 mg PO QHS 03/14/22 07/15/23 levothyroxine 88 mcg tablet 88 mcg PO DAILY 07/15/23 07/15/23 mirtazapine 7.5 mg tablet 7.5 mg PO QPM 07/15/23 07/15/23 norgestrel 0.3 mg-ethinyl 1 tab PO DAILY 07/15/23 07/15/23 estradiol 30 mcg tablet (Low-Ogestrel (28)) venlafaxine 37.5 mg 37.5 mg PO DAILY 07/15/23 07/15/23 capsule,extended release 24 hr (Effexor XR) lisdexamfetamine 10 mg capsule 10 mg PO DAILY 01/04/25 01/04/25 Allergies Allergy/AdvReac Type Severity Reaction Status Date / Time No Known Drug Allergies Allergy Verified 07/15/23 23:29 Review of Systems Narrative: Pertinent systems reviewed and were negative unless stated in HPI PFSH PFSH Medical History Obsessive compulsive disorder ?F42.9 - Obsessive-compulsive disorder, unspecified (ICD-10) PTSD (post-traumatic stress disorder) ?F43.10 - Post-traumatic stress disorder, unspecified (ICD-10) Fatigue ?R53.83 - Other fatigue (ICD-10) Vitamin D deficiency ?E55.9 - Vitamin D deficiency, unspecified (ICD-10) 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 - Eating disorder, unspecified (ICD-10) Amenorrhea ?N91.2 - Amenorrhea, unspecified (ICD-10) Anxiety and depression ?F41.9 - Anxiety disorder, unspecified (ICD-10) ?F32.A - Depression, unspecified (ICD-10) ROMI (generalized anxiety disorder) ?F41.1 - Generalized anxiety disorder (ICD-10) Surgical History No significant past surgical history Social History Smoking Status: Never smoker Do you use any of these nicotine containing products: E-Cigarettes Second hand tobacco smoke exposure: No How often do you have a drink containing alcohol: never How often do you have six or more drinks on one occasion: Never AUDIT-C Alcohol total score: 0 Non-prescribed substance use: denies use Exam Narrative: Exam Narrative: Const: Well-nourished, Well-developed, in mild distress Eyes: PERRL, no conjunctival injection, and symmetrical lids HENT: Atraumatic external nose and ears. Moist mucous membranes. MSK:Extremities w/o deformity, Normal Active ROM Skin: Warm, Dry. 3 cm laceration to left inner upper thigh Neuro: Normal Muscle tone, No focal neurological deficits. Psych: Awake, Alert, & Oriented x3. Appropriate mood and affect. Const: Vital Signs, click to edit/add: Vital Signs - 24 hr 01/04/25 17:37 Temperature 99.1 F Pulse Rate [Pulse Oximeter] 95 Respiratory Rate 16 Blood Pressure [Ri ght Upper Arm] 110/71 Pulse Oximetry 98 Oxygen Delivery Me thod Room Air Course Vital Signs Vital signs: Initial Vital Signs Temperature 99.1 F 01/04/25 17:37 Temperature Source Temporal Artery Scan 01/04/25 17:37 Pulse Rate 95 01/04/25 17:37 Respiratory Rate 16 01/04/25 17:37 Blood Pressure 110/71 01/04/25 17:37 Blood Pressure Mean 84 01/04/25 17:37 Blood Pressure Position Sitting 01/04/25 17:37 Pulse Oximetry 98 01/04/25 17:37 Oxygen Delivery Method Room Air 01/04/25 17:37 Vital Signs Temperature 99.1 F 01/04/25 17:37 Pulse Rate 95 01/04/25 17:37 Respiratory Rate 16 01/04/25 17:37 Blood Pressure 110/71 01/04/25 17:37 Pulse Oximetry 98 01/04/25 17:37 Oxygen Delivery Method Room Air 01/04/25 17:37 Temperature 99.1 F 01/04/25 17:37 Pulse Rate 95 01/04/25 17:37 Respiratory Rate 16 01/04/25 17:37 Blood Pressure 110/71 01/04/25 17:37 Pulse Oximetry 98 01/04/25 17:37 Oxygen Delivery Method Room Air 01/04/25 17:37 MDM - Wound/Laceration MDM Narrative Medical decision making narrative: Patient is a 19-year-old female presenting to the emergency department after laceration to her left thigh from a skate. She tolerated the procedure well. Antibiotics not necessary. She is safe for discharge. Discharge Plan Discharge Clinical Impression: Laceration Patient Disposition: Home, Self-Care Condition: Stable Instructions: Laceration (ED) Additional Instructions: Follow-up with your primary care provider or urgent care in the next 7 days to have the 3 sutures removed. For next 6 months, once sutures are removed, whenever you go outside put a dab of sunscreen over the laceration site to improve scar appearance. Topical antibiotics are not necessary at this time. Patient can shower but do not submerge the laceration until sutures are removed Prescriptions: No Action trazodone 50 mg tablet 75 mg PO QHS lisdexamfetamine 10 mg capsule 10 mg PO DAILY Low-Ogestrel (28) 0.3-30 mg-mcg tablet 1 tab PO DAILY levothyroxine 88 mcg tablet 88 mcg PO DAILY mirtazapine 7.5 mg tablet 7.5 mg PO QPM venlafaxine [Effexor XR] 37.5 mg capsule,extended release 24hr 37.5 mg PO DAILY Follow Up/Referrals: Provider,Not a Local [Primary Care Provider, Family Practice] Stand Alone Forms: [facility] Info Instructions Procedures Laceration Left thigh: Name of person performing procedure: Gary Rosario Site: lower extremity (Medial upper thigh) Side (If applicable): left Size (cm): 3 Description: linear and clean Depth: simple, single layer Local Anesthetic: lidocaine 1% and with epi Amount of anesthesia used (mL): 3 Skin layer closed with: nylon Size (cm): 3-0 Number of sutures: 3 Technique: simple, interrupted Conclusion: patient tolerated procedure
--- OUTSIDE RECORDS SUMMARY | 2025-01-04 19:50 | XMS_ITS | CCD ---
Author Name Interface, [email or web address] Address [address] [place] [address] [place] [address] Reason for Visit Social History Date Name Value 12/23/2024 Sex Female
--- OUTSIDE RECORDS SUMMARY | 2025-01-04 19:50 | XMS_ITS | CCD ---
Author Name Interface, [email or web address] Address [address] [place] [address] [place] [address] Reason for Visit Social History Date Name Value 12/23/2024 Sex Female
== END 2025-01-04 20:01 | disposition home or self-care (01) ==
LOC: ED 19:47
PROVIDERS: Emergency Provider Student in an Organized Health Care Education/Training Program
DX: S71.112A Laceration without foreign body, left thigh, initial encounter (principal); W21.32XA Struck by skate blades, initial encounter; Y93.22 Activity, ice hockey
CPT/HCPCS: 12002; 99283